=== PATIENT | female | born 2000 | race Caucasian/White ===

== ENCOUNTER 2021-03-06 10:02 | Outpatient (CLI) | payer OTHER, SELFPAY ==
[2021-03-06 12:47] LABS: SARS-CoV-2 RNA PCR Negative (Negative)
== END 2021-03-06 10:03 | disposition home or self-care (01) ==
LOC: CHSLAB 10:10
DX: R62.50 Unspecified lack of expected normal physiological development in childhood (principal); Z01.818 Encounter for other preprocedural examination; Z20.822 Contact with and (suspected) exposure to COVID-19
CPT/HCPCS: C9803; U0003; U0005